=== PATIENT | male | born 1955 | race Caucasian/White ===

== ENCOUNTER 2018-09-18 10:07 | Day surgery (SDC) | payer BC ==
[2018-09-18] MEDS ORDERED: PROPOFOL 10 MG/ML VIAL IV ONE (10:08)
[2018-09-18] MEDS ORDERED: LIDOCAINE 2% MDV (20MG/ML) 20ML VIAL IV ONE (10:08)
[2018-09-18] MEDS ORDERED: MIDAZOLAM HCL 2MG/2ML VIAL IV ONE (10:08)
--- NOTE | 2018-09-20 10:50 | Operative Note ---
DATE OF SURGERY: 09/18/2018 Surgeon: Immanuel Donato DO Referring physician: Lewis Birch DO OPERATION: 1. COLONOSCOPY TO THE CECUM WITH COLD SNARE POLYPECTOMY X3. 2. COLD BIOPSY FORCEPS POLYPECTOMY X1. INDICATION: History of adenomatous polyps in the past. The patient returns at this time after a positive FIT test. Anesthesia: Intravenous sedation was administered by the Department of Anesthesiology and included Diprivan titrated to effect. PROCEDURE: Following informed consent from this alert individual, including a discussion of the risks and benefits of the procedure and opportunity for the patient to ask questions, the patient was in the left lateral decubitus position. Digital rectal examination was performed. No abnormalities were noted. Following this, the Olympus PCF 180 video colonoscope was inserted in the rectum without resistance. The rectal mucosa had a normal appearance with normal folds and distensibility. There were 2 diminutive polyps also noted in the rectum which were ultimately removed with cold snare polypectomy. They measured 3 to 4 mm in size each. The colonoscope was advanced up through the bowel to the level of the cecum. Throughout the bowel the mucosa appeared normal, folds were normal. The bowel was filled with distensible. The cecum was defined by noting the appendiceal orifice and the ileocecal valve. The colon preparation overall was good. At the base of the cecum there was a diminutive 3 mm polyp noted, which was removed with biopsy forceps. Retroflexion in the cecum revealed a 6 mm sessile polyp in the ascending colon, which was ultimately removed with cold snare polypectomy and suctioned through the colonoscope into a collection trap. From this point, the colonoscope was slowly withdrawn, no additional changes were noted until the rectum was reached, as mentioned above, within the rectum there were two 3 to 4 mm polyps which were removed with cold snare polypectomy. Slow withdrawal through the anus revealed small internal hemorrhoids. The endoscope was removed. The patient tolerated the procedure well and was returned to the recovery area in stable condition. IMPRESSION: 1. A 3 mm cecal polyp removed with biopsy forceps. 2. A 6 mm ascending colon polyp removed with cold snare polypectomy. 3. Two 3 to 4 mm rectal polyps, removed with cold snare polypectomy. 4. Small internal hemorrhoids. RECOMMENDATIONS: Further recommendations will be forthcoming pending the results of pathology obtained today. Followup will also be with Dr. Birch. As always, thank you for allowing me to participate in the care of your patient. CC: LEWIS BIRCH D.O. Immanuel Donato DO [facility]
== END 2018-09-18 12:20 | disposition home or self-care (01) ==
LOC: HOP 10:07
PROVIDERS: ATTEND Internal Medicine Gastroenterology
DX: R19.5 Other fecal abnormalities (principal); Z86.010 Personal history of colon polyps; D12.2 Benign neoplasm of ascending colon; D12.0 Benign neoplasm of cecum; K62.1 Rectal polyp; K64.8 Other hemorrhoids; M54.9 Dorsalgia, unspecified